=== PATIENT | female | born 1975 | race Caucasian/White ===

== ENCOUNTER 2019-09-27 07:10 | Day surgery (SDC) | payer BC ==
[2019-09-21 10:16] LABS: BASOPHILS # (AUTO) 0.1 X10'3 (0-0.2); BASOPHILS % (AUTO) 0.9 % (0-1); EOSINOPHILS # (AUTO) 0.2 X10'3 (0-0.9); EOSINOPHILS % (AUTO) 3.2 % (0-6); LYMPHOCYTES % (AUTO) 25.8 % (21-51); MEAN CORPUSCULAR HEMOGLOBIN 30.6 PG (27.0-31.0); MEAN CORPUSCULAR HGB CONC 33.6 g/dL (33.0-36.5); MEAN CORPUSCULAR VOLUME 91.1 FL (78-98); MEAN PLATELET VOLUME 10.6 FL (7.4-10.4); MONOCYTES # (AUTO) 0.6 X10'3 (0-0.9); MONOCYTES % (AUTO) 8.5 % (2-12); NEUTROPHILS # (AUTO) 4.7 X10'3 (1.8-7.7); NEUTROPHILS % (AUTO) 61.6 % (42-75); PRE OP HEMATOCRIT 41.6 % (35.0-45.0); PRE OP PLATELET COUNT 251 X10'3 (140-440); RED BLOOD COUNT 4.57 X10'6 (4.20-5.60); RED CELL DISTRIBUTION WIDTH 13.6 % (11.5-14.5)
[2019-09-21 10:39] LABS: ALBUMIN 3.8 G/DL (3.4-5.0); ALBUMIN/GLOBULIN RATIO 1.1 (1.1-1.5); ALKALINE PHOSPHATASE 53 IU/L (46-116); BLOOD UREA NITROGEN 8 MG/DL (7-18); CALCIUM 8.8 MG/DL (8.5-10.1); CHLORIDE 107 MMOL/L (99-107); CREATININE 1.15 MG/DL (0.40-0.90); PRE OP ALT 15 U/L (30-65); PRE OP ANION GAP 7 (8-16); PRE OP AST 12 U/L (10-37); PRE OP BILIRUB, TOTAL 0.4 MG/DL (0.0-1.0); PRE OP GLUCOSE 96 MG/DL (70-104); PRE OP POTASSIUM 4.1 MMOL/L (3.4-5.1); PRE OP SODIUM 142 MMOL/L (135-145); TOTAL CARBON DIOXIDE 28.3 MMOL/L (24-32); TOTAL PROTEIN 7.2 G/DL (6.4-8.2); eGFR 52 ML/MIN
[2019-09-21 11:09] LABS: HCG SERUM QL NEGATIVE
[2019-09-27] VITALS (9 sets, daily range): BP systolic 126–144; BP diastolic 65–85
[~2019-09-27] VITALS: Ht 167.6 cm; Wt 96.2 kg
[~2019-09-27 07:10] MED LIST: BUPIVAcaine/PF 2.5 mg/ml (0.25%) 30ml vial ONE; LIDOcaine 1% 30ml preserv. free vial ONE; OMEP40CA13 PO; ceFAZolin 2gm in dextrose, iso 50 ML IV ONE; famotidine 20mg tablet PO ONE; ringers solution, lacted 1,000 ML IV SCH
[2019-09-27] MEDS ORDERED: ringers solution, lacted 1,000 ML IV SCH (07:25)
[2019-09-27] MEDS ORDERED: ondansetron/PF 4mg/2ml inj IV PRN (07:25)
[2019-09-27] MEDS ORDERED: meperidine/PF 25mg/ml syringe IV PRN ×3 (07:25)
[2019-09-27] MEDS ORDERED: proCHLORperazine 10 MG/2 ml inj IV PRN (07:25)
[2019-09-27] MEDS ORDERED: morphine 2 MG/ML inj. syringe IV PRN (07:25)
[2019-09-27] MEDS ORDERED: morphine 4 MG/ML inj SYRINge IV PRN (07:25)
[2019-09-27] MEDS ORDERED: rocuronium 10mg/ml inj IV ONE (11:20)
[2019-09-27] MEDS ORDERED: sevoflurane 250ml liquid IH ONE (11:20)
[2019-09-27] MEDS ORDERED: neostigmine methylsulfate 1 MG/ML 10ml vial ONE (11:20)
[2019-09-27] MEDS ORDERED: fentaNYL /PF 50mcg/ml 5ml ampule ONE (11:25)
[2019-09-27] MEDS ORDERED: midazolam 2 mg/2 ml injection ONE (11:25)
[2019-09-27] MEDS ORDERED: LIDOcaine 2% (20mg/ml) 5ml vial ONE (11:26)
[2019-09-27] MEDS ORDERED: propofol inj 20 ML IV ONE (11:26)
[2019-09-27] MEDS ORDERED: dexamethasone sod phosphate 4mg/ml inj. ONE (11:36)
[2019-09-27] MEDS ORDERED: ondansetron/PF 4mg/2ml inj ONE (11:36)
[2019-09-27] MEDS ORDERED: BUPIVAcaine/PF 2.5mg/ml (0.25%) 10ml vial ONE (12:04)
[2019-09-27] MEDS ORDERED: BUPIVACAINE liposomal/PF 13.3 MG/ML vial IM ONE (12:05)
[2019-09-27] MEDS ORDERED: acetaminophen 1,000mg/100ml IV 100 ML IV ONE (12:11)
[2019-09-27] MEDS ORDERED: glycopyrrolate 0.2mg/ml inj ONE (12:43)
[2019-09-27] MEDS ORDERED: oxyCODONE/APAP 5-325mg tablet PO PRN (13:00)
--- NOTE | 2019-09-27 13:05 | NUR ---
Received from OR via [facility], accompanied by Anesthesiologist DR BHATTI and report given by Anesthesiolgist. PATIENT WAKING UP, DENIES PAIN, V/S WNL, NEUROVASCULAR CHECKS INTACT, 20G PIV SAMY, SCD ON, 3 BANDAIDS TO LAP SIGHTS OF ABDOMEN CDI. Addendum: 09/27/19 at 1307 by Ariane Soto RN CHARTING FOR [id number] FORGOT TO CHANGE TIME
--- NOTE | 2019-09-27 14:25 | NUR ---
PATIENT A&OX4, DENIES PAIN, V/S WNL, NEUROVASCULAR CHECKS INTACT, 20G PIV LUE D/C, SCD OFF, 3 BANDAIDS TO LAP SIGHTS OF ABDOMEN CDI.. I HAVE REVIEWED D/C INSTRUCTIONS WITH PATIENT AND FAMILY HAVE VERBALIZED UNDERSTANDING.PATIENT WAS D/C HOME WITH ALL BELONGINGS AND FAMILY GAVE TRANSPORT HOME.
== END 2019-09-27 14:25 | disposition home or self-care (01) ==
LOC: PAS 07:10
PROVIDERS: ATTEND Surgery
DX: K43.6 Other and unspecified ventral hernia with obstruction, without gangrene (principal); G43.909 Migraine, unspecified, not intractable, without status migrainosus; F41.9 Anxiety disorder, unspecified; K21.9 Gastro-esophageal reflux disease without esophagitis; J44.9 Chronic obstructive pulmonary disease, unspecified; G47.30 Sleep apnea, unspecified; I10 Essential (primary) hypertension; E66.01 Morbid (severe) obesity due to excess calories; Z68.33 Body mass index [BMI] 33.0-33.9, adult; Z11.59 Encounter for screening for other viral diseases; Z79.899 Other long term (current) drug therapy; Z98.890 Other specified postprocedural states; Z72.89 Other problems related to lifestyle; Z82.3 Family history of stroke; Z82.49 Family history of ischemic heart disease and other diseases of the circulatory system; Z80.9 Family history of malignant neoplasm, unspecified
CPT/HCPCS: 36415; 49653; 64488; 80053; 82948; 84703; 85025; 93005; C1781; C9290; J0131; J1100; J2001; J2175; J2250; J2405; J2704; J2710; J3010; J3490; J7120; S2900; U0003; A4215; A4618